=== PATIENT | male | born 1995 | race Caucasian/White ===

== ENCOUNTER 2023-07-08 07:43 | Day surgery (SDC) | payer OTHER, SELFPAY ==
--- NOTE | 2023-07-08 | PATH_ITS ---
[facility] Accession Number: [id number] No. of containers..01 Tissue . 01 Material submitted: . gastrointestinal site - GASTRIC . 01 Diagnosis: Stomach, biopsy: Oxyntic gastric mucosa with mild chronic gastritis. No H. Pylori like organisms identified (by the H/E and immunohistochemical stained slide sections). No intestinal metaplasia, dysplasia or malignancy identified. See comment: -- COMMENT: H. Pylori immunohistochemical stain was performed and is negative. TECHNICAL NOTE: THE IMMUNOHISTOCHEMICAL STAINS REPORTED WERE PERFORMED AT [facility] ([address], [facility] [address]). THEY WERE DEVELOPED AND THEIR PERFORMANCE CHARACTERISTICS DETERMINED BY [employer]. THEY HAVE NOT BEEN CLEARED OR APPROVED BY THE [employer], ALTHOUGH SUCH APPROVAL IS NOT REQUIRED FOR ANALYTE-SPECIFIC REAGENTS OF THIS TYPE. TXN 07/15/2023 1130 Local . 01 Electronically signed: . Zhang Talamantes MD, Pathologist NPI- [id number] . 01 Gross description: . GASTRIC: Received in formalin is 1 fragment(s) of claudio, soft tissue measuring 0.3 x 0.3 x 0.2 cm submitted entirely in 1 cassette(s) /JOCELIN 07/09/2023 2232 Local . 01 Pathologist provided ICD-10: K21.9 . 01 CPT . 254965, [id number] Specimen Comment: A courtesy copy of this report has been sent to [phone] Performed at: [address] [place] [address], [place], [place] [id number] MD Owen Cervantes MD Phone: [phone]
[2023-07-08 08:03] VITALS: BP 120/74; PULSE 65; RESP 16; TEMP 36.6; O2SAT 97
[2023-07-08] MEDS: LACTATED RINGERS 1,000 ML 42 ML IV (08:06)
--- NOTE | 2023-07-08 08:14 | PM.HP.1 ---
History of Present Illness History of Present Illness Date Patient Seen: 07/08/23 Time Patient Seen: 08:15 Chief complaint: EGD Narrative: 28-year-old here for upper endoscopy. He has fairly severe reflux and therapy has been escalated to b.i.d. PPI. [facility] Medical History GERD (gastroesophageal reflux disease) Social History Smoking Status: Never smoker alcohol intake: current Meds Home Medications and Allergies Home Medications Medication Instructions Recorded Confirmed Type pantoprazole 40 mg tablet,delayed 40 mg PO BID 07/08/23 07/08/23 History release Allergies Allergy/AdvReac Type Severity Reaction Status Date / Time No Known Drug Allergies Allergy Verified 07/08/23 07:55 Review of Systems Review of Systems ROS: Yes All systems reviewed with the patient and are negative except as otherwise documented Exam Vital Signs (past 8 hours): - 07/08/23 08:03 Temperature 97.8 F Pulse Rate 65 Respiratory Rate 16 Blood Pressure 120/74 Pulse Oximetry 97 Oxygen Delivery Method Room Air Oxygen Delivery Method Room Air Const General: cooperative HENMT Head: normal to inspection Eyes General: appearance normal, both eyes and all related structures Neck Neck: normal visual inspection Chest Chest: normal inspection of the chest Resp Effort & Inspection: normal respiratory effort Cardio Rate: regular rate GI Inspection: normal to inspection Skin General: no rashes or lesions noted Neuro General: patient alert and patient awake Extrem General: normal to inspection and no pedal edema Psych Appearance: grossly normal Assessment & Plan Assessment & Plan narrative: 28-year-old male with severe reflux. Diagnostic EGD is pursued today.
--- NOTE | 2023-07-08 08:22 | PM.PREOP ---
Pre-operative Note Interval Note History & Physical reviewed/Exam performed by Physician: Yes Changes to H&P: No ASA Class (for procedural sedation): I
--- NOTE | 2023-07-08 08:34 | P.OP.EGD_ITS ---
Operative Date/Time/Diagnoses Date of procedure: 07/08/23 Time of procedure: 08:34 Pre-op diagnosis: Severe GERD Post-op diagnosis: same Procedure & Clinicians Study performed: EGD with biopsies Same procedure as scheduled: Yes Indications: Severe GERD Surgeon: Issac Sahni Procedure Notes SCOAP/Timeout: Done Procedure in detail: After the risks and benefits were explained, written and verbal informed consent was obtained. The patient was brought into the procedure room and placed into the left lateral decubitus position. Please see anesthesia note for sedation details. The scope was introduced into the mouth through the bite block and advanced under direct visualization to the 2nd portion of the duodenum. The scope was slowly withdrawn carefully examining the mucosa for any defects or lesions. Retroflexed views were accomplished in the stomach. The stomach was decompressed, the scope was then removed from the patient who tolerated the procedure well. Sedation minutes: 5 Complications: none Impression: 1. Duodenum: This was normal from the bulb through to the 2nd portion. 2. Stomach: Minimal gastropathy was identified in the antrum. Biopsies were acquired for exclusion of H pylori. No mass lesions no ulcerations and no outlet obstruction identified. The pylorus was normal in appearance. Re troflexed views of the LES were unremarkable. Hill valve grade 1. 3. Esophagus: The squamocolumnar junction correlated with the top of the gastric folds. GEJ was at approximately 40 cm from the incisors. There was a very subtle sliding hiatal hernia. There was evidence of subtle LA grade B erosive esophagitis. No stricturing. No ulcerations. No mass lesions. The remainder of the esophagus was unremarkable. Endoscopic diagnosis 1. LA grade B erosive esophagitis 2. Subtle sliding hiatal hernia 3. Mild gastropathy Post-procedure Plan for aftercare: 1. Await histology. 2. If Helicobacter is found, it will need to be eradicated with standard triple therapy. 3. Continue anti-reflux therapy. Taper down the dose to the minimal that allows you to remain completely asymptomatic. Disposition: PACU
[2023-07-08 08:39] VITALS: BP 102/59; PULSE 70; RESP 12; TEMP 36.3; O2SAT 93
[2023-07-08 08:44] VITALS: BP 104/61; PULSE 63; RESP 12; O2SAT 95
[2023-07-08 08:49] VITALS: BP 102/53; PULSE 61; RESP 14; O2SAT 94
[2023-07-08 09:00] VITALS: BP 104/60; PULSE 55; RESP 16; O2SAT 95
== END 2023-07-08 09:10 | disposition home or self-care (01) ==
PROVIDERS: PCP Preventive Medicine Aerospace Medicine; Referring Provider Surgery; Visit Provider Internal Medicine Gastroenterology
PROC: 0DJ08ZZ Inspection of Upper Intestinal Tract, Via Natural or Artificial Opening Endoscopic (ICD-10-PCS; CPT 43235; principal; 2023-07-08 08:30)
DX: K21.00 Gastro-esophageal reflux disease with esophagitis, without bleeding (principal); K44.9 Diaphragmatic hernia without obstruction or gangrene; K31.9 Disease of stomach and duodenum, unspecified; K29.50 Unspecified chronic gastritis without bleeding
CPT/HCPCS: 43239; J2704

== ENCOUNTER → 2024-10-23 10:44 | Outpatient (CLI) | payer OTHER, SELFPAY ==
--- NOTE | 2024-10-23 10:47 | DI.MRI.S_ITS ---
PROCEDURE: MR LUMBAR SPINE WO CON INDICATIONS: RADICULOPATHY TECHNIQUE: Noncontrast sagittal T1 spin echo and T2 fast echo, sagittal STIR, and T2 fast spin echo through the lumbar spine. In cases with scoliosis, additional coronal T2 fast spin echo may be performed. COMPARISON: None. FINDINGS: Image quality: Excellent. Alignment and Curvature: There is normal bony alignment. Bone Marrow: Marrow is of normal overall signal. No acute vertebral body compression fractures. Spinal Cord: Conus medullaris terminates at the L1 level. Visualized cord demonstrates normal signal and size. Paraspinous Soft Tissues: No paravertebral masses. T12-L1: Normal appearance. L1-L2: Normal appearance. L2-L3: Normal appearance. L3-L4: Normal appearance. L4-L5: The disc height and disk signal are well-preserved. Mild generalized disc bulge is seen. There is a superimposed central disc protrusion. Moderate bilateral neural foraminal narrowing is seen. Minimal central canal narrowing is seen. L5-S1: Mild loss of disc height is seen. Loss of disc signal is seen. Mild to moderate disc bulge is seen, with a central/left disc protrusion. There is a focal annular fissure seen posteriorly. Mild facet joint hypertrophy is seen. [id number] bilateral neural foraminal narrowing is seen. Mild to moderate central canal narrowing is seen. There is mild mass effect seen upon the transiting left S1 nerve root. IMPRESSION: Focal premature lower lumbar spine degenerative changes are seen. Dictated by: Everett Pimentel M.D. on 10/23/2024 at 16:59 Approved by: Everett Pimentel M.D. on 10/23/2024 at 17:01
== END ==
LOC: MRI 10:46
PROVIDERS: PCP Preventive Medicine Aerospace Medicine; Referring Provider Student in an Organized Health Care Education/Training Program; Visit Provider Student in an Organized Health Care Education/Training Program
DX: M47.817 Spondylosis without myelopathy or radiculopathy, lumbosacral region (principal); M54.50 Low back pain, unspecified
CPT/HCPCS: 72148